=== PATIENT | female | born 1975 | race African-American/Black ===

== ENCOUNTER 2025-05-07 16:10 | Observation (INO) ==
--- NOTE | 2025-05-07 16:27 | EKG ---
Test Reason : chest pain Blood Pressure : */* mmHG Vent. Rate : 100 BPM Atrial Rate : 100 BPM P-R Int : 168 ms QRS Dur : 82 ms QT Int : 380 ms P-R-T Axes : 72 33 95 degrees QTc Int : 490 ms Normal sinus rhythm Nonspecific T wave abnormality Prolonged QT Abnormal ECG When compared with ECG of 04-MAY-2025 13:06, No significant change was found Confirmed by Colt Farrar MD ([id number]) on 05/08/2025 7:19:49 AM Referred By: Confirmed By: Colt Farrar MD
[2025-05-07 16:42] LABS: BASOPHILS # (AUTO) 0.1 X10^3/uL (0.0-0.1); BASOPHILS % (AUTO) 1.5 % (0.2-1.0); EOSINOPHILS # (AUTO) 0.1 x10^3/uL (0.0-0.2); EOSINOPHILS % (AUTO) 1.1 % (0.9-2.9); HEMATOCRIT 36.2 % (36.0-47.0); HEMOGLOBIN 12.1 g/dL (12.0-16.0); LYMPHOCYTES # (AUTO) 2.1 X10^3/uL (1.3-2.9); MEAN CORPUSCULAR HEMOGLOBIN 27.5 pg (27.0-34.0); MEAN CORPUSCULAR HGB CONC 33.4 g/dL (33.0-35.0); MEAN CORPUSCULAR VOLUME 82.3 fL (80.0-100.0); MEAN PLATELET VOLUME 8.7 fL (7.4-11.0); MONOCYTES # (AUTO) 0.7 x10^3/uL (0.3-0.8); MONOCYTES % (AUTO) 10.5 % (0.0-13.0); NEUTROPHILS # (AUTO) 3.4 x10^3/uL (2.2-4.8); NEUTROPHILS % (AUTO) 53.9 % (42.0-75.0); PLATELET COUNT 265 X10^3/uL (150.0-450.0); RED BLOOD COUNT 4.39 X10^6/uL (3.5-5.4); RED CELL DISTRIBUTION WIDTH 13.7 % (11.6-16.5); WHITE BLOOD COUNT 6.2 X10^3/uL (3.6-10.0)
[2025-05-07 16:45] LABS: INR 1.29 (0.8-1.3)
[2025-05-07 16:48] LABS: SERUM ACETONE NEGATIVE (NEGATIVE)
[2025-05-07 16:52] LABS: ALANINE AMINOTRANSFERASE 19 Units/L (12-78); ALBUMIN 3.6 g/dL (3.4-5.0); ALKALINE PHOSPHATASE 117 Units/L (46-116); ASPARTATE AMINO TRANSFERASE 30 Units/L (15-37); BLOOD UREA NITROGEN 29 mg/dL (7-18); CARBON DIOXIDE 24.5 mmol/L (21-32); CHLORIDE 93 mmol/L (98-107); COR NA(FOR HYPERGLY) 137 mmol/L (136-145); CREATINE KINASE 151 Units/L (26-192); GLUCOSE 434 mg/dL (65-99); POTASSIUM 4.2 mmol/L (3.5-5.1); SODIUM 129 mmol/L (136-145); TOTAL PROTEIN 8.5 g/dL (6.4-8.2); eGFR NON BLACK RACES 56 (>60)
[2025-05-07] MEDS: NS 1,000 ML IV 1,000 ML IV ONE (17:59)
[2025-05-07] MEDS ORDERED: OMNIPAQUE 350 mg/mL 100 mL BTL 100 ML ONE (18:07)
[2025-05-07] MEDS: NovoLIN R (or HumuLIN R) IV ONE (18:56)
--- NOTE | 2025-05-07 19:16 | CT ---
EXAMINATION: CTA, CHEST HISTORY: ELEVATED D-DIMER / CHEST PAIN / SOB ; . COMPARISON: None. TECHNIQUE: Routine axial imaging of the chest was performed. CT angiography of the pulmonary arteries was performed with maximum intensity projection images and volume rendered images on a workstation.. The above CT scan was done with automated exposure control and the mA and kV was adjusted to obtain quality im ages according to patient size. FINDINGS: Lungs: No acute infiltrates, suspicious pulmonary nodules, interstitial changes or ground-glass opacities. Atelectasis at the lung bases. Central Airways: No obstructing endobronchial lesions Pleura: No pleural effusion or pneumothorax Thoracic Aorta: Ectasia. Atherosclerotic calcification. No dissection. Main Pulmonary Trunk: Enlarged. This may represent pulmonary arterial hypertension. Pulmonary artery measures 3.[address] angiography evidence for acute pulmonary embolus. Evaluation limited by respiratory motion Lymph Nodes: No pathologic hilar, axillary or mediastinal adenopathy Heart/Pericardium: Cardiomegaly. No significant pericardial effusion. Coronary artery calcification Liver: No acute findings. GB/Biliary: Contracted gallbladder. Spleen: Normal size and density Pancreas: No acute findings as visualized. Adrenal Glands: No mass Kidneys no hydronephrosis. Abdominal Aorta: Tapers and enhances normally. Retroperitoneum: No pathologic lymphadenopathy Bowel/Peritoneal Cavity: No acute findings as visualized. Osseous Structures: Degenerative changes in the thoracolumbar spine. No acute findings. No suspicious bony lesions. Other: None IMPRESSION: No CT angiography evidence for acute pulmonary embolus or aortic dissection. Evaluation limited by respiratory motion. No acute findings. Enlarged pulmonary artery suggesting pulmonary arterial hypertension The above CT scan was done with automated exposure control and the mA and kV was adjusted to obtain quality images according to patient size THIS IS AN ELECTRONICALLY VERIFIED FINAL REPORT 05/07/2025 7:12 PM - Electronically signed by Al Cohn MD
--- NOTE | 2025-05-07 20:04 | DR.CP ---
HPI Time Seen Time Seen by Provider: 05/07/25 17:23 PCP Primary Care Physician: Dr. Quinones HPI Comment HPI Comment: Patient states that while she was at [facility] she started having chest pain. She has had increased blood sugars. Patient was recently seen in the ER for hyperglycemia. Patient was supposed to follow-up with PCP on Thursday but was unable to get in and is scheduled for Thursday. Patient's sugar was elevated but states better than before she was seen on . She denies any fevers. She does admit to some dyspnea on exertion. Complaint Chief Complaint:: Patient c/o of chest pain that started today at [facility] and increased blood sugars. Self Treatment fo Chief Complaint: Lantus 30units at 6am COVID-19 Coronavirus risk:travel/contact w/high risk person: No Has patient experienced Coronavirus symptoms: No Source History Provided: Patient Mode of Arrival Mode of Arrival: Ambulatory Timing Onset of Chief Complaint: 05/07/25 Location Chest Pain Radiation Location: None Associated Signs and Symptoms Associated Signs and Symptoms: None PMH PMH Past Medical History: Yes Past Medical History: Anemia, Diabetes, Dyslipidemia and Hypertension Past Surgical History: Yes Surgical History: , Hysterectomy and Other Family History History of Family Medical Conditions: Yes Family Medical History: Diabetes Mellitus, [place] and Hypertension Social History Do you use any recreational Drugs:: No Travel Risk Coronavirus risk:travel/contact w/high risk person: No Has patient experienced Coronavirus symptoms: No Infectious screening In the last 2 months have you had wt loss of >10#?: NO Have you had fever, night sweats or hemotysis?: No Have you traveled outside the country in the last 6 months?: No Isolation: Standard ROS Review of Systems Constitutional: No Symptoms Reported Eyes: No Symptoms Reported ENTM: No Symptoms Reported Respiratoy: No Symptoms Reported Cardiovascular: Chest Pain Gastrointestinal/Abdominal: No Symptoms Reported Genitourinary: No Symptoms Reported Neurological: No Symptoms Reported Musculoskeletal: No Symptoms Reported Integumentary: No Symptoms Reported Hematologic/Lymphatic: No Symptoms Reported Endocrine: No Symptoms Reported and See HPI Psychiatric: No Symptoms Reported All Other Systems: Reviewed and Negative PE Vitals Vitals: Vital Signs Temperature 98.3 F Pulse Rate 92 Pulse Rate 95 Pulse Rate 93 Pulse Rate 96 Pulse Rate 99 Pulse Rate 97 Pulse Rate 96 Pulse Rate 97 Pulse Rate 98 Pulse Rate 97 Pulse Rate 99 Pulse Rate 100 Respiratory Rate 25 Respiratory Rate 23 Respiratory Rate 23 Respiratory Rate 15 Blood Pressure 147/104 Blood Pressure 144/74 Blood Pressure 136/77 Blood Pressure 136/77 Blood Pressure 139/60 Blood Pressure 136/61 Blood Pressure 135/57 Blood Pressure 134/61 O2 Sat by Pulse Oximetry 100 O2 Sat by Pulse Oximetry 98 O2 Sat by Pulse Oximetry 100 O2 Sat by Pulse Oximetry 99 O2 Sat by Pulse Oximetry 100 O2 Sat by Pulse Oximetry 100 O2 Sat by Pulse Oximetry 99 O2 Sat by Pulse Oximetry 99 O2 Sat by Pulse Oximetry 100 O2 Sat by Pulse Oximetry 100 O2 Sat by Pulse Oximetry 100 O2 Sat by Pulse Oximetry 99 General Limitations: No Limitations General Appearance: Alert and In No Apparent Distress Head Head Exam: Normal Inspection Eyes Eye exam: Normal Appearance ENT ENT Exam: Normal Exam Chest Chest Inspection: negative Normal Inspection Respiratory Respiratory Exam: Normal Lung Sounds Bilat Cardiovascular Cardiovascular Exam: Regular Rate and Normal Rhythm Pulse: Normal Edema: Normal Abdominal Exam Abdominal Exam: Normal Inspection, Normal Bowel Sounds and Soft Extremities Extremities Exam: Normal Inspection Back Back Exam: Normal Inspection Neurologic Neurological Exam: Alert and Oriented X3 Psychiatric Psychiatric Exam: Normal Affect and Normal Mood Skin Skin Exam: Warm, Dry, Intact and Normal Color COURSE Treatment Treatment: Patient's glucose improved through the stay. Continues to have some chest pain. Discussed results of workup. Patient is agreeable to admission for chest pain rule out and to regulate her glucose. Consultation Called: 20:02 Consultation Comments: Discussed case with Dr. Heck and she is agreeable to admission. [facility]OR Labs Reviewed Laboratory Results Reviewed?: Yes 05/07/25 16:18 05/07/25 16:18 Laboratory: WBC 6.2 X10^3/uL (3.6-10.0) 05/07/25 16:18 RBC 4.39 X10^6/uL (3.5-5.4) 05/07/25 16:18 Hgb 12.1 g/dL (12.0-16.0) 05/07/25 16:18 Hct 36.2 % (36.0-47.0) 05/07/25 16:18 MCV 82.3 fL (80.0-100.0) 05/07/25 16:18 MCH 27.5 pg (27.0-34.0) 05/07/25 16:18 MCHC 33.4 g/dL (33.0-35.0) 05/07/25 16:18 RDW 13.7 % (11.6-16.5) 05/07/25 16:18 Plt Count 265 X10^3/uL (150.0-450.0) 05/07/25 16:18 MPV 8.7 fL (7.4-11.0) 05/07/25 16:18 Neut % (Auto) 53.9 % (42.0-75.0) 05/07/25 16:18 Lymph % (Auto) 33.0 % (21.0-51.0) 05/07/25 16:18 [place] % (Auto) 10.5 % (0.0-13.0) 05/07/25 16:18 Eos % (Auto) 1.1 % (0.9-2.9) 05/07/25 16:18 Baso % (Auto) 1.5 % (0.2-1.0) H 05/07/25 16:18 Neut # (Auto) 3.4 x10^3/uL (2.2-4.8) 05/07/25 16:18 Lymph # (Auto) 2.1 X10^3/uL (1.3-2.9) 05/07/25 16:18 [place] # (Auto) 0.7 x10^3/uL (0.3-0.8) 05/07/25 16:18 Eos # (Auto) 0.1 x10^3/uL (0.0-0.2) 05/07/25 16:18 Baso # (Auto) 0.1 X10^3/uL (0.0-0.1) 05/07/25 16:18 Absolute Nucleated RBC 0.1 /100WBC 05/07/25 16:18 PT 16.2 SECONDS (11.8-14.3) 05/07/25 16:18 INR Target Range - 05/07/25 16:18 INR 1.29 (0.8-1.3) 05/07/25 16:18 APTT 30.0 SECONDS (22.9-36.5) 05/07/25 16:18 PTT Comment - 05/07/25 16:18 D-Dimer 0.75 ug/ml (0.0-0.57) H 05/07/25 16:18 D-Dimer Cancelled 05/07/25 16:18 Sodium 129 mmol/L (136-145) L 05/07/25 16:18 Corrected Sodium 137 mmol/L (136-145) 05/07/25 16:18 Potassium 4.2 mmol/L (3.5-5.1) 05/07/25 16:18 Chloride 93 mmol/L (98-107) L 05/07/25 16:18 Carbon Dioxide 24.5 mmol/L (21-32) 05/07/25 16:18 BUN 29 mg/dL (7-18) H 05/07/25 16:18 Creatinine 1.10 mg/dL (0.55-1.02) H 05/07/25 16:18 Est GFR (MDRD) Af Amer > 60 (>60) 05/07/25 16:18 Est GFR (MDRD) Non-Af 56 (>60) L 05/07/25 16:18 Glucose 434 mg/dL (65-99) H 05/07/25 16:18 POC Glucose (mg/dL) 195 mg/dL (65-99) H 05/07/25 19:48 Calcium 9.0 mg/dL (8.5-10.1) 05/07/25 16:18 Corrected Calcium TNP 05/07/25 16:18 Total Bilirubin 0.60 mg/dL (0.2-1.0) 05/07/25 16:18 AST 30 Units/L (15-37) 05/07/25 16:18 ALT 19 Units/L (12-78) 05/07/25 16:18 Alkaline Phosphatase 117 Units/L (46-116) H 05/07/25 16:18 Creatine Kinase 151 Units/L (26-192) 05/07/25 16:18 Troponin I High Sens 7.7 ng/L (4.0-60.0) 05/07/25 19:24 B-Natriuretic Peptide < 5.0 pg/mL (0-79) 05/07/25 16:18 Total Protein 8.5 g/dL (6.4-8.2) H 05/07/25 16:18 Albumin 3.6 g/dL (3.4-5.0) 05/07/25 16:18 Globulin 4.9 g/dL (2.5-4.5) H 05/07/25 16:18 Albumin/Globulin Ratio 0.7 Ratio (1.1-2.1) L 05/07/25 16:18 Acetone, Semi-Quant Negative (NEGATIVE) 05/07/25 16:18 Other Results Comments: CTA chest interpreted by radiologist: IMPRESSION: No CT angiography evidence for acute pulmonary embolus or aortic dissection. Evaluation limited by respiratory motion. No acute findings. Enlarged pulmonary artery suggesting pulmonary arterial hypertension The above CT scan was done with automated exposure control and the mA and kV was adjusted to obtain quality images according to patient size THIS IS AN ELECTRONICALLY VERIFIED FINAL REPORT 05/07/2025 7:12 PM - Electronically signed by Al Cohn MD XRAY XRAY Interpreted by: Self (Chest x-ray interpreted by myself. No acute cardiopulmonary findings. Mild cardiomegaly with pulmonary markings reflecting possible pulmonary hypertension.) Opioid Opioid Risk Tool Age (Zechariah box if 16-45): No History of Preadolescent Sexual Abuse: No Total: 0 Total Score Risk Category: Low Risk Copyright: Marcial MENDOZA predicting aberrant behaviors Discharge Plan Diagnosis Discharge Problem: Chest pain Type 2 diabetes mellitus with hyperglycemia Qualifiers: Diabetes mellitus termite technician insulin use: with [facility] use Qualified Code(s): E11.65 - Type 2 diabetes mellitus with hyperglycemia Discharge Plan Patient Disposition: ADMITTED INPATIENT Condition: Stable Prescriptions: No Action carvedilol 6.25 mg tablet 6.25 mg PO BID atorvastatin 20 mg tablet 20 mg PO QPM ibuprofen 800 mg tablet 800 mg PO Q8H PRN oxycodone 15 mg tablet 15 mg PO QID PRN (Reason: chronic pain) pantoprazole 40 mg tablet,delayed release (DR/EC) 40 mg PO QAM olmesartan 20 mg tablet 20 mg PO QDAY levocetirizine 5 mg tablet 5 mg PO QPM insulin glargine [Lantus U-100 Insulin] 100 unit/mL solution 30 unit SUBCUT HS Patient Comments: [NO ORIGINAL SIG] buspirone 15 mg tablet 15 mg PO BID Eliquis 5 mg tablet 5 mg PO BID Health Concerns: Post Hospitalization: new medications and changes needed to prevent readmission or further decline. Pt educated and given instructions on all concerns. Plan of Treatment: Continue with present treatment and follow up plan. Pt is to keep follow up appointment as instructed and take medications as ordered. Orders to Discharge Patient Discharge Orders: Transfer (Routine); Ordered 05/07/25 Ordered By: Cal Coe Follow ups/Referrals Follow ups/Referrals: NFD,None [Primary Care Provider] - 3 days Instructions Stand Alone Forms: Find Help Web Site, Post Hospital Follow Up Care Print Language: SERBIAN
[2025-05-07] MEDS: NS 1,000 ML IV 1,000 ML IV SCH (21:11)
[2025-05-07] MEDS ORDERED: ROXICODONE TAB 15 MG PO PRN (21:12)
--- NOTE | 2025-05-07 21:25 | EKG ---
Test Reason : chest pain Blood Pressure : */* mmHG Vent. Rate : 92 BPM Atrial Rate : 92 BPM P-R Int : 172 ms QRS Dur : 76 ms QT Int : 406 ms P-R-T Axes : 72 10 128 degrees QTc Int : 502 ms Normal sinus rhythm Nonspecific T wave abnormality Abnormal ECG When compared with ECG of 07-MAY-2025 16:23, (Unconfirmed) No significant change was found Confirmed by Colt Farrar MD ([id number]) on 05/08/2025 7:18:59 AM Referred By: Confirmed By: Colt Farrar MD
[2025-05-07] MEDS: COREG TAB 6.25 MG PO SCH (21:30)
[2025-05-07] MEDS: LIPITOR TAB 20 MG PO SCH (21:30)
[2025-05-07] MEDS: BUSPAR PO SCH (21:30)
[2025-05-07] MEDS: SNACK - Diabetic Appropriate PO SCH (21:30)
[2025-05-07] MEDS: ELIQUIS PO SCH (21:30)
[2025-05-07] MEDS: NovoLIN R (or HumuLIN R) SUBCUT PRN (21:36)
[2025-05-07 22:34] VITALS: BMI 43.4
--- NOTE | 2025-05-08 00:31 | RAD ---
EXAM: FRONTAL VIEW CHEST X-RAY HISTORY: Chest pain COMPARISON: None. FINDINGS: No focal consolidation is seen. The heart size is within normal limits. The mediastinum is unremarkable. There is no evidence of pleural effusion or gross pneumothorax. The trachea is midline. IMPRESSION: No focal consolidation is seen. The heart size is normal. THIS IS AN ELECTRONICALLY VERIFIED FINAL REPORT 05/08/2025 12:28 AM - Electronically signed by Peter Schumacher MD
--- NOTE | 2025-05-08 02:47 | EKG ---
Test Reason : chest pain Blood Pressure : */* mmHG Vent. Rate : 89 BPM Atrial Rate : 89 BPM P-R Int : 174 ms QRS Dur : 78 ms QT Int : 406 ms P-R-T Axes : 81 24 60 degrees QTc Int : 493 ms Normal sinus rhythm Nonspecific T wave abnormality Abnormal ECG When compared with ECG of 07-MAY-2025 21:02, (Unconfirmed) No significant change was found Confirmed by Colt Farrar MD ([id number]) on 05/08/2025 7:18:50 AM Referred By: Confirmed By: Colt Farrar MD
[2025-05-08 06:00] LABS: BASOPHILS % (AUTO) 0.5 % (0.2-1.0); EOSINOPHILS # (AUTO) 0.1 x10^3/uL (0.0-0.2); EOSINOPHILS % (AUTO) 1.6 % (0.9-2.9); HEMATOCRIT 32.6 % (36.0-47.0); LYMPHOCYTES # (AUTO) 1.8 X10^3/uL (1.3-2.9); LYMPHOCYTES % (AUTO) 33.5 % (21.0-51.0); MEAN CORPUSCULAR HGB CONC 33.8 g/dL (33.0-35.0); MEAN CORPUSCULAR VOLUME 82.8 fL (80.0-100.0); MEAN PLATELET VOLUME 8.7 fL (7.4-11.0); MONOCYTES # (AUTO) 0.8 x10^3/uL (0.3-0.8); MONOCYTES % (AUTO) 15.1 % (0.0-13.0); NEUTROPHILS # (AUTO) 2.6 x10^3/uL (2.2-4.8); NEUTROPHILS % (AUTO) 49.3 % (42.0-75.0); PLATELET COUNT 221 X10^3/uL (150.0-450.0); RED BLOOD COUNT 3.94 X10^6/uL (3.5-5.4); RED CELL DISTRIBUTION WIDTH 13.9 % (11.6-16.5); WHITE BLOOD COUNT 5.2 X10^3/uL (3.6-10.0)
[2025-05-08 06:11] LABS: ALANINE AMINOTRANSFERASE 16 Units/L (12-78); ALBUMIN 2.9 g/dL (3.4-5.0); ALKALINE PHOSPHATASE 97 Units/L (46-116); ASPARTATE AMINO TRANSFERASE 24 Units/L (15-37); BLOOD UREA NITROGEN 19 mg/dL (7-18); CALCIUM 8.4 mg/dL (8.5-10.1); CARBON DIOXIDE 25.5 mmol/L (21-32); CHLORIDE 100 mmol/L (98-107); CHOL/HDL RATIO 4.8 (0.0-5.0); CHOLESTEROL 140 mg/dL (0-200); COR CA(FOR HYPOALB) 9.3 mg/dL (8.5-10.1); COR NA(FOR HYPERGLY) 138 mmol/L (136-145); GLUCOSE 283 mg/dL (65-99); HDL CHOLESTEROL 29 mg/dL (40-60); MAGNESIUM 1.7 mg/dL (2.0-2.9); POTASSIUM 3.5 mmol/L (3.5-5.1); SODIUM 134 mmol/L (136-145); TOTAL PROTEIN 7.2 g/dL (6.4-8.2); TRIGLYCERIDES 134 mg/dL (0-150); eGFR NON BLACK RACES > 60 (>60)
--- NOTE | 2025-05-08 06:51 | RAD ---
EXAMINATION: CHEST, 1 VIEW HISTORY: CHEST PAIN, DMII; . COMPARISON STUDY: Chest x-ray 05/07/2025 TECHNIQUE: Single frontal view of the chest FINDINGS: The film was obtained in the apical lordotic projection distorting the appearance of the anatomy. Mild cardiac silhouette enlargement. Lungs are clear. Normal pulmonary vascular pattern. Bones are intact. IMPRESSION: Mild cardiac silhouette enlargement. Recommend follow-up PA and lateral view of the chest with full inspiratory effort. THIS IS AN ELECTRONICALLY VERIFIED FINAL REPORT 05/08/2025 6:48 AM - Electronically signed by Angie Freire MD
[2025-05-08] MEDS ORDERED: CONSULT PHARMACY - POTASSIUM & MAGNESIUM XX SCH ×2 (07:00→08:00)
[2025-05-08] MEDS: BENICAR PO SCH (08:30)
[2025-05-08] MEDS: PROTONIX TAB 40 MG PO SCH (08:32)
[2025-05-08] MEDS: MAG-OX TAB PO SCH (08:32)
[2025-05-08] MEDS: K-DUR TAB 20 MEQ PO SCH (08:32)
--- NOTE | 2025-05-08 09:45 | EKG ---
Test Reason : chest pain Blood Pressure : */* mmHG Vent. Rate : 83 BPM Atrial Rate : 83 BPM P-R Int : 174 ms QRS Dur : 76 ms QT Int : 424 ms P-R-T Axes : 78 21 57 degrees QTc Int : 498 ms Normal sinus rhythm Prolonged QT Abnormal ECG When compared with ECG of 08-MAY-2025 02:23, Nonspecific T wave abnormality no longer evident in Inferior leads Nonspecific T wave abnormality, improved in Lateral leads Confirmed by Colt Farrar MD ([id number]) on 05/08/2025 12:34:26 PM Referred By: Confirmed By: Colt Farrar MD
--- NOTE | 2025-05-08 09:54 | DR.H&P ---
H&P History & Physical for Day of: H&P Date: 05/08/25 Chief Complaint Chief Complaint: Chest pain, hyperglycemia History of Present Illness History of Present Illness: Ms. Huber is a 50-year-old female with a past medical history of type 2 diabetes, hypertension, hyperlipidemia, history of DVT/PE and anemia presented with chest tightness and hyperglycemia. She was seen in the ER on 05/04/2025 for hyperglycemia and treated with insulin. She states her blood sugars have been elevated since she started taking Lantus using a vial rather than a pen. Her last A1C was 9%. She has a follow-up with her PCP on Thursday. ER workup showed troponin negative, slight elevation of D-dimer. CT chest did not show PE. Her glucose was 434 and she was treated with insulin. She was started on sliding scale and admitted for further management. She is feeling slightly better now. Denies chest pain. Glucose is 280. Labs/imaging reviewed: -WBC 5.2 Hgb 11 Plt 221 K 3.5 Cr 0.80 Mag 1.7 Trop x 4 (-) -CT chest: pulmonary HTN, no PE Plan: admit to med surg on telemetry. Start Lantus 20 units BID. Continue SSI. Monitor glucose levels. Diabetic diet. Resume home medications. Replace electrolytes as per protocol. Monitor AM labs/imaging. Past Medical History Past Medical History: Anemia, Diabetes, Dyslipidemia and Hypertension Past Surgical History Surgical History: Hysterectomy and Other Family History Family Medical History: Diabetes Mellitus, Cancer and Hypertension Social History Does patient currently use any type of tobacco product: No Type of Tobacco Use: None Does any household member use tobacco: No Alcohol Use: None Drug Use: None Medications Home Medications: Home Medications Medication Instructions Recorded Confirmed Type apixaban 5 mg tablet (Eliquis) 5 mg PO BID 05/04/25 History atorvastatin 20 mg tablet 20 mg PO QPM cholesterol 04/2305/07/25 History buspirone 15 mg tablet 15 mg PO BID 05/04/25 History carvedilol 6.25 mg tablet 6.25 mg PO BID 05/04/2507/24 History ibuprofen 800 mg tablet 800 mg PO Q8H PRN 05/04/25 0 05/07/25 History insulin glargine 100 unit/mL 30 unit subcut HS 5 05/07/25 History subcutaneous solution (Lantus U-100 Insulin) levocetirizine 5 mg tablet 5 mg PO QPM 05/04/25 History olmesartan 20 mg tablet 20 mg PO QDAY blood pressure 05/04/25 05/07/25 History oxycodone 15 mg tablet 15 mg PO QID PRN chronic caterina n 05/04/25 05/07/25 History pantoprazole 40 mg tablet,delayed 40 mg PO QAM 5 05/07/25 History release Allergies Allergies Allergy/AdvReac Type Severity Reaction Status Date / Time No Known Drug Allergies Allergy Verified 05/04/25 13:05 Labs 05/08/25 05:03 05/08/25 05:03 Labs: Laboratory WBC 5.2 X10^3/uL (3.6-10.0) 05/08/25 05:03 RBC 3.94 X10^6/uL (3.5-5.4) 05/08/25 05:03 Hgb 11.0 g/dL (12.0-16.0) L 05/08/25 05:03 Hct 32.6 % (36.0-47.0) L 05/08/25 05:03 MCV 82.8 fL (80.0-100.0) 05/08/25 05:03 MCH 28.0 pg (27.0-34.0) 05/08/25 05:03 MCHC 33.8 g/dL (33.0-35.0) 05/08/25 05:03 RDW 13.9 % (11.6-16.5) 05/08/25 05:03 Plt Count 221 X10^3/uL (150.0-450.0) 05/08/25 05:03 MPV 8.7 fL (7.4-11.0) 05/08/25 05:03 Neut % (Auto) 49.3 % (42.0-75.0) 05/08/25 05:03 Lymph % (Auto) 33.5 % (21.0-51.0) 05/08/25 05:03 [place] % (Auto) 15.1 % (0.0-13.0) H 05/08/25 05:03 Eos % (Auto) 1.6 % (0.9-2.9) 05/08/25 05:03 Baso % (Auto) 0.5 % (0.2-1.0) 05/08/25 05:03 Neut # (Auto) 2.6 x10^3/uL (2.2-4.8) 05/08/25 05:03 Lymph # (Auto) 1.8 X10^3/uL (1.3-2.9) 05/08/25 05:03 [place] # (Auto) 0.8 x10^3/uL (0.3-0.8) 05/08/25 05:03 Eos # (Auto) 0.1 x10^3/uL (0.0-0.2) 05/08/25 05:03 Baso # (Auto) 0.0 X10^3/uL (0.0-0.1) 05/08/25 05:03 Absolute Nucleated RBC 0.1 /100WBC 05/08/25 05:03 PT 16.2 SECONDS (11.8-14.3) 05/07/25 16:18 INR Target Range - 05/07/25 16:18 INR 1.29 (0.8-1.3) 05/07/25 16:18 APTT 30.0 SECONDS (22.9-36.5) 05/07/25 16:18 PTT Comment - 05/07/25 16:18 D-Dimer 0.75 ug/ml (0.0-0.57) H 05/07/25 16:18 D-Dimer Cancelled 05/07/25 16:18 Sodium 134 mmol/L (136-145) L 05/08/25 05:03 Corrected Sodium 138 mmol/L (136-145) 05/08/25 05:03 Potassium 3.5 mmol/L (3.5-5.1) 05/08/25 05:03 Chloride 100 mmol/L (98-107) 05/08/25 05:03 Carbon Dioxide 25.5 mmol/L (21-32) 05/08/25 05:03 BUN 19 mg/dL (7-18) H 05/08/25 05:03 Creatinine 0.80 mg/dL (0.55-1.02) 05/08/25 05:03 Est GFR (MDRD) Af Amer > 60 (>60) 05/08/25 05:03 Est GFR (MDRD) Non-Af > 60 (>60) 05/08/25 05:03 Glucose 283 mg/dL (65-99) H 05/08/25 05:03 POC Glucose (mg/dL) 280 mg/dL (65-99) H 05/08/25 05:43 Calcium 8.4 mg/dL (8.5-10.1) L 05/08/25 05:03 Corrected Calcium 9.3 mg/dL (8.5-10.1) 05/08/25 05:03 Magnesium 1.7 mg/dL (2.0-2.9) L 05/08/25 05:03 Total Bilirubin 0.30 mg/dL (0.2-1.0) 05/08/25 05:03 AST 24 Units/L (15-37) 05/08/25 05:03 ALT 16 Units/L (12-78) 05/08/25 05:03 Alkaline Phosphatase 97 Units/L (46-116) 05/08/25 05:03 Creatine Kinase 99 Units/L (26-192) 05/08/25 07:37 Troponin I High Sens 8.1 ng/L (4.0-60.0) 05/08/25 07:37 B-Natriuretic Peptide < 5.0 pg/mL (0-79) 05/07/25 16:18 Total Protein 7.2 g/dL (6.4-8.2) 05/08/25 05:03 Albumin 2.9 g/dL (3.4-5.0) L 05/08/25 05:03 Globulin 4.3 g/dL (2.5-4.5) 05/08/25 05:03 Albumin/Globulin Ratio 0.7 Ratio (1.1-2.1) L 05/08/25 05:03 Triglycerides 134 mg/dL (0-150) 05/08/25 05:03 Cholesterol 140 mg/dL (0-200) 05/08/25 05:03 LDL Cholesterol, Calc 84 mg/dL (0-100) 05/08/25 05:03 HDL Cholesterol 29 mg/dL (40-60) L 05/08/25 05:03 Cholesterol/HDL Ratio 4.8 (0.0-5.0) 05/08/25 05:03 Acetone, Semi-Quant Negative (NEGATIVE) 05/07/25 16:18 Review of Systems Constitutional: No Symptoms Reported Eyes: No Symptoms Reported ENT: No Symptoms Reported Respiratory: No Symptoms Reported Cardiovascular: Chest Pain Gastrointestinal: No Symptoms Reported Genitourinary: No Symptoms Reported Musculoskeletal: No Symptoms Reported Skin: No Symptoms Reported Neurological: No Symptoms Reported Physical Exam Vital Signs: Vital Signs Temperature 98.9 F Temperature 97.5 F Pulse Rate [Left Brachial] 85 Pulse Rate [Left Brachial] 87 Respiratory Rate 19 Respiratory Rate 19 Blood Pressure [Left Arm] 130/67 Blood Pressure [Left Arm] 130/78 O2 Sat by Pulse Oximetry 100 O2 Sat by Pulse Oximetry 100 Oriented: Normal Throat: Normal Respiratory: Clear Throughout Cardiovascular: Normal Auscultation: Bowel Sounds: Normal Palpation: Normal Tenderness: Normal Skin: Normal Musculoskeletal: Normal Psychiatric: Normal Mood Description: Calm Affect: Normal Speech Pattern: Clear and Appropriate Assessment/Plan (1) Hyperglycemia: Status: Acute (2) Type 2 diabetes mellitus with hyperglycemia: Qualifiers: Diabetes mellitus exterminator helper termite insulin use: with usp use Qualified Code(s): E11.65 - Type 2 diabetes mellitus with hyperglycemia; Z79.4 - long term acute care registered nurse (current) use of insulin Status: Chronic (3) Chest pain: Qualifiers: Chest pain type: unspecified Qualified Code(s): R07.9 - Chest pain, unspecified Status: Acute (4) HTN (hypertension): Qualifiers: Hypertension type: primary hypertension Qualified Code(s): I10 - Essential (primary) hypertension Status: Chronic (5) History of pulmonary embolism: Status: Chronic (6) Hypomagnesemia: Status: Acute Review H&P Reviewed: Yes Patient was examined?: Yes
[2025-05-08] MEDS: LANTUS SC SCH (10:43)
[2025-05-08] MEDS ORDERED: SNACK - Diabetic Appropriate PO SCH (20:00)
[2025-05-08] MEDS: SNACK - Diabetic Appropriate PO SCH (20:09)
[2025-05-09 00:10] VITALS: TEMP 98.1
[2025-05-09 04:11] VITALS: RESP 19; O2SAT 100
[2025-05-09 05:01] LABS: BASOPHILS % (AUTO) 0.6 % (0.2-1.0); EOSINOPHILS # (AUTO) 0.1 x10^3/uL (0.0-0.2); EOSINOPHILS % (AUTO) 1.7 % (0.9-2.9); HEMATOCRIT 32.5 % (36.0-47.0); HEMOGLOBIN 10.9 g/dL (12.0-16.0); LYMPHOCYTES # (AUTO) 1.7 X10^3/uL (1.3-2.9); LYMPHOCYTES % (AUTO) 31.6 % (21.0-51.0); MEAN CORPUSCULAR HEMOGLOBIN 27.7 pg (27.0-34.0); MEAN CORPUSCULAR HGB CONC 33.7 g/dL (33.0-35.0); MEAN CORPUSCULAR VOLUME 82.4 fL (80.0-100.0); MEAN PLATELET VOLUME 8.4 fL (7.4-11.0); MONOCYTES # (AUTO) 0.7 x10^3/uL (0.3-0.8); MONOCYTES % (AUTO) 12.5 % (0.0-13.0); NEUTROPHILS # (AUTO) 2.9 x10^3/uL (2.2-4.8); NEUTROPHILS % (AUTO) 53.6 % (42.0-75.0); PLATELET COUNT 230 X10^3/uL (150.0-450.0); RED BLOOD COUNT 3.95 X10^6/uL (3.5-5.4); RED CELL DISTRIBUTION WIDTH 13.8 % (11.6-16.5); WHITE BLOOD COUNT 5.3 X10^3/uL (3.6-10.0)
[2025-05-09 05:10] LABS: ALANINE AMINOTRANSFERASE 18 Units/L (12-78); ALKALINE PHOSPHATASE 97 Units/L (46-116); ASPARTATE AMINO TRANSFERASE 26 Units/L (15-37); BLOOD UREA NITROGEN 11 mg/dL (7-18); CALCIUM 8.9 mg/dL (8.5-10.1); CARBON DIOXIDE 26.1 mmol/L (21-32); CHLORIDE 103 mmol/L (98-107); COR CA(FOR HYPOALB) 9.7 mg/dL (8.5-10.1); COR NA(FOR HYPERGLY) 138 mmol/L (136-145); CREATININE 0.73 mg/dL (0.55-1.02); GLUCOSE 149 mg/dL (65-99); MAGNESIUM 1.6 mg/dL (2.0-2.9); POTASSIUM 3.5 mmol/L (3.5-5.1); SODIUM 137 mmol/L (136-145); TOTAL PROTEIN 7.3 g/dL (6.4-8.2); eGFR NON BLACK RACES > 60 (>60)
[2025-05-09] MEDS ORDERED: CONSULT PHARMACY - POTASSIUM & MAGNESIUM XX SCH (06:00)
[2025-05-09 08:02] VITALS: BP 121/70; PULSE 95
[2025-05-09] MEDS: MAG-OX TAB PO SCH (08:41)
[2025-05-09] MEDS: LANTUS SC SCH (08:54)
[2025-05-09] MEDS ORDERED: K-DUR TAB 20 MEQ PO SCH (09:00)
--- NOTE | 2025-05-11 13:07 | W.DIS.FURT ---
Summary of Discharge Discharge Summary of Date Date of Exam: 05/09/25 Admission Date Date of Admission: 05/07/25 Admission Diagnosis Patient Problems (Updated 05/08/25 @ 09:53 by Marleni Heck MD) Chest pain (Acute) R07.9 Type 2 diabetes mellitus with hyperglycemia (Chronic) E11.65 Hospital Course: Ms. Huber is a 50-year-old female with a past medical history of type 2 diabetes, hypertension, hyperlipidemia, history of DVT/PE and anemia presented with chest tightness and hyperglycemia. She was seen in the ER on 05/04/2025 for hyperglycemia and treated with insulin. She states her blood sugars have been elevated since she started taking Lantus using a vial rather than a pen. Her last A1C was 9%. She has a follow-up with her PCP on Thursday. ER workup showed troponin negative, slight elevation of D-dimer. CT chest did not show PE. Her glucose was 434 and she was treated with insulin. She was started on sliding scale and admitted for further management. Labs were monitored daily and electrolytes replaced as needed. She was started on Lantus 20 units twice daily along with sliding scale short acting insulin. Her glucose levels did not improve the next day. She was told to take Lantus 22 units twice a day along with sliding scale. She does have a follow-up with PCP coming up. She was feeling better and stable for discharge. Vital Signs: Vital Signs (72 hours) 05/07/25 16:21 05/07/25 16:22 05/07/25 16:30 Temperature 98.3 F Pulse Rate 100 H 99 H Pulse Rate [Left Brachial] Respiratory Rate 15 23 Blood Pressure 134/61 135/57 Blood Pressure [Left Arm] Blood Pressure [Right Arm] O2 Sat by Pulse Oximetry 99 100 Oxygen Delivery Method Room Air Oxygen Flow Rate FIO2% 05/07/25 16:30 05/07/25 16:45 05/07/25 17:00 Temperature Pulse Rate 97 H 98 H Pulse Rate [Left Brachial] Respiratory Rate 23 25 H Blood Pressure 136/61 Blood Pressure [Left Arm] Blood Pressure [Right Arm] O2 Sat by Pulse Oximetry 100 100 Oxygen Delivery Method Oxygen Flow Rate FIO2% 05/07/25 17:00 05/07/25 17:15 05/07/25 17:30 Temperature Pulse Rate 97 H 96 H Pulse Rate [Left Brachial] Respiratory Rate Blood Pressure 139/60 Blood Pressure [Left Arm] Blood Pressure [Right Arm] O2 Sat by Pulse Oximetry 99 99 Oxygen Delivery Method Oxygen Flow Rate FIO2% 05/07/25 17:30 05/07/25 17:45 05/07/25 17:55 Temperature Pulse Rate 97 H 99 H Pulse Rate [Left Brachial] Respiratory Rate Blood Pressure 136/77 Blood Pressure [Left Arm] Blood Pressure [Right Arm] O2 Sat by Pulse Oximetry 100 100 Oxygen Delivery Method Oxygen Flow Rate FIO2% 05/07/25 17:55 05/07/25 17:55 05/07/25 18:00 Temperature Pulse Rate 96 H 93 H Pulse Rate [Left Brachial] Respiratory Rate Blood Pressure 136/77 Blood Pressure [Left Arm] Blood Pressure [Right Arm] O2 Sat by Pulse Oximetry 99 100 Oxygen Delivery Method Oxygen Flow Rate FIO2% 05/07/25 18:00 05/07/25 18:15 05/07/25 18:30 Temperature Pulse Rate 95 H 92 H Pulse Rate [Left Brachial] Respiratory Rate Blood Pressure 144/74 Blood Pressure [Left Arm] Blood Pressure [Right Arm] O2 Sat by Pulse Oximetry 98 100 Oxygen Delivery Method Oxygen Flow Rate FIO2% 05/07/25 18:30 05/07/25 18:30 05/07/25 18:30 Temperature Pulse Rate 92 H Pulse Rate [Left Brachial] Respiratory Rate Blood Pressure 147/104 147/104 Blood Pressure [Left Arm] Blood Pressure [Right Arm] O2 Sat by Pulse Oximetry 100 Oxygen Delivery Method Oxygen Flow Rate FIO2% 05/07/25 18:52 05/07/25 19:00 05/07/25 19:00 Temperature Pulse Rate 95 H 97 H Pulse Rate [Left Brachial] Respiratory Rate Blood Pressure 158/78 Blood Pressure [Left Arm] Blood Pressure [Right Arm] O2 Sat by Pulse Oximetry 100 100 Oxygen Delivery Method Oxygen Flow Rate FIO2% 05/07/25 19:15 05/07/25 19:30 05/07/25 19:30 Temperature Pulse Rate 101 H 99 H Pulse Rate [Left Brachial] Respiratory Rate Blood Pressure 130/74 Blood Pressure [Left Arm] Blood Pressure [Right Arm] O2 Sat by Pulse Oximetry 99 100 Oxygen Delivery Method Oxygen Flow Rate FIO2% 05/07/25 19:45 05/07/25 20:00 05/07/25 20:00 Temperature Pulse Rate 96 H 96 H Pulse Rate [Left Brachial] Respiratory Rate 10 L Blood Pressure 147/75 Blood Pressure [Left Arm] Blood Pressure [Right Arm] O2 Sat by Pulse Oximetry 100 99 Oxygen Delivery Method Oxygen Flow Rate FIO2% 05/07/25 20:14 05/07/25 20:15 05/07/25 20:30 Temperature Pulse Rate 99 H 98 H Pulse Rate [Left Brachial] Respiratory Rate 23 20 Blood Pressure Blood Pressure [Left Arm] Blood Pressure [Right Arm] O2 Sat by Pulse Oximetry 99 100 Oxygen Delivery Method Room Air Oxygen Flow Rate FIO2% 05/07/25 20:31 05/07/25 20:31 05/07/25 21:30 Temperature Pulse Rate 97 H Pulse Rate [Left Brachial] Respiratory Rate 24 Blood Pressure 165/81 Blood Pressure [Left Arm] Blood Pressure [Right Arm] O2 Sat by Pulse Oximetry 99 Oxygen Delivery Method Nasal Cannula Oxygen Flow Rate 2 FIO2% 28 05/07/25 21:31 05/08/25 00:00 05/08/25 04:00 Temperature 97.6 F 97.5 F L 97.5 F L Pulse Rate Pulse Rate [Left Brachial] 94 H 89 87 Respiratory Rate 20 19 19 Blood Pressure Blood Pressure [Left Arm] 130/78 Blood Pressure [Right Arm] 128/69 136/82 O2 Sat by Pulse Oximetry 100 100 100 Oxygen Delivery Method Room Air Room Air Room Air Oxygen Flow Rate FIO2% 05/08/25 07:00 05/08/25 08:00 05/08/25 12:00 Temperature 98.9 F 97.1 F L Pulse Rate Pulse Rate [Left Brachial] 85 88 Respiratory Rate 19 18 Blood Pressure Blood Pressure [Left Arm] 130/67 114/60 Blood Pressure [Right Arm] O2 Sat by Pulse Oximetry 100 98 Oxygen Delivery Method Room Air Room Air Room Air Oxygen Flow Rate FIO2% 05/08/25 16:00 05/08/25 19:00 05/08/25 19:41 Temperature 97.7 F 97.5 F L Pulse Rate Pulse Rate [Left Brachial] 90 85 Respiratory Rate 19 18 Blood Pressure Blood Pressure [Left Arm] 127/72 129/78 Blood Pressure [Right Arm] O2 Sat by Pulse Oximetry 100 99 Oxygen Delivery Method Room Air Room Air Room Air Oxygen Flow Rate FIO2% 05/08/25 21:30 05/09/25 00:00 05/09/25 04:00 Temperature 98.1 F 98.1 F Pulse Rate Pulse Rate [Left Brachial] 85 85 Respiratory Rate 18 19 Blood Pressure Blood Pressure [Left Arm] 138/61 130/68 Blood Pressure [Right Arm] O2 Sat by Pulse Oximetry 99 100 Oxygen Delivery Method Nasal Cannula Room Air Room Air Oxygen Flow Rate 2 FIO2% 28 05/09/25 07:00 05/09/25 08:00 05/09/25 08:42 Temperature 98.1 F Pulse Rate Pulse Rate [Left Brachial] 95 H Respiratory Rate 19 Blood Pressure Blood Pressure [Left Arm] 121/70 Blood Pressure [Right Arm] O2 Sat by Pulse Oximetry 100 Oxygen Delivery Method Room Air Room Air Room Air Oxygen Flow Rate 2 FIO2% 28 Labs: Laboratory Last Values WBC 5.3 X10^3/uL (3.6-10.0) 05/09/25 04:25 RBC 3.95 X10^6/uL (3.5-5.4) 05/09/25 04:25 Hgb 10.9 g/dL (12.0-16.0) L 05/09/25 04:25 Hct 32.5 % (36.0-47.0) L 05/09/25 04:25 MCV 82.4 fL (80.0-100.0) 05/09/25 04:25 MCH 27.7 pg (27.0-34.0) 05/09/25 04:25 MCHC 33.7 g/dL (33.0-35.0) 05/09/25 04:25 RDW 13.8 % (11.6-16.5) 05/09/25 04:25 Plt Count 230 X10^3/uL (150.0-450.0) 05/09/25 04:25 MPV 8.4 fL (7.4-11.0) 05/09/25 04:25 Neut % (Auto) 53.6 % (42.0-75.0) 05/09/25 04:25 Lymph % (Auto) 31.6 % (21.0-51.0) 05/09/25 04:25 Sandoval % (Auto) 12.5 % (0.0-13.0) 05/09/25 04:25 Eos % (Auto) 1.7 % (0.9-2.9) 05/09/25 04:25 Baso % (Auto) 0.6 % (0.2-1.0) 05/09/25 04:25 Neut # (Auto) 2.9 x10^3/uL (2.2-4.8) 05/09/25 04:25 Lymph # (Auto) 1.7 X10^3/uL (1.3-2.9) 05/09/25 04:25 Sandoval # (Auto) 0.7 x10^3/uL (0.3-0.8) 05/09/25 04:25 Eos # (Auto) 0.1 x10^3/uL (0.0-0.2) 05/09/25 04:25 Baso # (Auto) 0.0 X10^3/uL (0.0-0.1) 05/09/25 04:25 Absolute Nucleated RBC 0.0 /100WBC 05/09/25 04:25 PT 16.2 SECONDS (11.8-14.3) 05/07/25 16:18 INR Target Range - 05/07/25 16:18 INR 1.29 (0.8-1.3) 05/07/25 16:18 APTT 30.0 SECONDS (22.9-36.5) 05/07/25 16:18 PTT Comment - 05/07/25 16:18 D-Dimer 0.75 ug/ml (0.0-0.57) H 05/07/25 16:18 D-Dimer Cancelled 05/07/25 16:18 Sodium 137 mmol/L (136-145) 05/09/25 04:25 Corrected Sodium 138 mmol/L (136-145) 05/09/25 04:25 Potassium 3.5 mmol/L (3.5-5.1) 05/09/25 04:25 Chloride 103 mmol/L (98-107) 05/09/25 04:25 Carbon Dioxide 26.1 mmol/L (21-32) 05/09/25 04:25 BUN 11 mg/dL (7-18) 05/09/25 04:25 Creatinine 0.73 mg/dL (0.55-1.02) 05/09/25 04:25 Est GFR (MDRD) Af Amer > 60 (>60) 05/09/25 04:25 Est GFR (MDRD) Non-Af > 60 (>60) 05/09/25 04:25 Glucose 149 mg/dL (65-99) H 05/09/25 04:25 POC Glucose (mg/dL) 149 mg/dL (65-99) H 05/09/25 05:10 Hemoglobin A1c 10.9 % 05/08/25 05:03 Calcium 8.9 mg/dL (8.5-10.1) 05/09/25 04:25 Corrected Calcium 9.7 mg/dL (8.5-10.1) 05/09/25 04:25 Magnesium 1.6 mg/dL (2.0-2.9) L 05/09/25 04:25 Total Bilirubin 0.40 mg/dL (0.2-1.0) 05/09/25 04:25 AST 26 Units/L (15-37) 05/09/25 04:25 ALT 18 Units/L (12-78) 05/09/25 04:25 Alkaline Phosphatase 97 Units/L (46-116) 05/09/25 04:25 Creatine Kinase 99 Units/L (26-192) 05/08/25 07:37 Troponin I High Sens 8.1 ng/L (4.0-60.0) 05/08/25 07:37 B-Natriuretic Peptide < 5.0 pg/mL (0-79) 05/07/25 16:18 Total Protein 7.3 g/dL (6.4-8.2) 05/09/25 04:25 Albumin 3.0 g/dL (3.4-5.0) L 05/09/25 04:25 Globulin 4.3 g/dL (2.5-4.5) 05/09/25 04:25 Albumin/Globulin Ratio 0.7 Ratio (1.1-2.1) L 05/09/25 04:25 Triglycerides 134 mg/dL (0-150) 05/08/25 05:03 Cholesterol 140 mg/dL (0-200) 05/08/25 05:03 LDL Cholesterol, Calc 84 mg/dL (0-100) 05/08/25 05:03 HDL Cholesterol 29 mg/dL (40-60) L 05/08/25 05:03 Cholesterol/HDL Ratio 4.8 (0.0-5.0) 05/08/25 05:03 Acetone, Semi-Quant Negative (NEGATIVE) 05/07/25 16:18 Reason For Visit: CHEST PAIN/DIABETES MELLITUS TYPE 2 WITH Discharge Diagnosis All Active Problems (Updated 05/08/25 @ 09:53 by Marleni Heck MD) Hypomagnesemia (Acute) History of pulmonary embolism (Chronic) HTN (hypertension) (Chronic) Chest pain (Acute) Type 2 diabetes mellitus with hyperglycemia (Chronic) Hyperglycemia (Acute) Superficial abscess of perineum (Acute) Plan of Treatment: Continue with present treatment and follow up plan. Pt is to keep follow up appointment as instructed and take medications as ordered. Discharge Medications Discharge Medications: No Known Drug Allergies Allergy (Verified 05/04/25 13:05) New Prescriptions insulin aspart U-100 100 unit/mL (3 mL) subcutaneous pen (Novolog FlexPen U-100 Insulin aspart) 1 sliding scale dose subcut USEASDIRECTD #15 mL 05/09/25 [Rx] insulin glargine 100 unit/mL (3 mL) subcutaneous pen (Lantus Solostar U-100 Insulin) 22 unit (0.22 mL) subcut BID 30 days #13.2 mL 05/09/25 [Rx] Discharge Disposition Assessment: No distress noted. Discharge Disposition: Home Discharge Condition: stable Discharge Plan Discharge Plan Hospital Course: Ms. Huber is a 50-year-old female with a past medical history of type 2 diabetes, hypertension, hyperlipidemia, history of DVT/PE and anemia presented with chest tightness and hyperglycemia. She was seen in the ER on 05/04/2025 for hyperglycemia and treated with insulin. She states her blood sugars have been elevated since she started taking Lantus using a vial rather than a pen. Her last A1C was 9%. She has a follow-up with her PCP on Thursday. ER workup showed troponin negative, slight elevation of D-dimer. CT chest did not show PE. Her glucose was 434 and she was treated with insulin. She was started on sliding scale and admitted for further management. Labs were monitored daily and electrolytes replaced as needed. She was started on Lantus 20 units twice daily along with sliding scale short acting insulin. Her glucose levels did not improve the next day. She was told to take Lantus 22 units twice a day along with sliding scale. She does have a follow-up with PCP coming up. She was feeling better and stable for discharge. Patient Disposition: 01 HOME, SELF-CARE Condition: Stable Health Concerns: Post Hospitalization: new medications and changes needed to prevent readmission or further decline. Pt educated and given instructions on all concerns. Care Plan Goals: Problem: Chest Pain Goals: Chest pain improving/resolved Instructions: Contact your physician or report to the closest Emergency Department if your chest pain returns or worsens. Take medications as prescribed. Follow up with your primary doctor as instructed. Plan of Treatment: Continue with present treatment and follow up plan. Pt is to keep follow up appointment as instructed and take medications as ordered. Assessment: No distress noted. Prescription drug monitoring program results: PDMP reviewed and no concerns identified Prescriptions: New insulin glargine [Lantus Solostar U-100 Insulin] 100 unit/mL (3 mL) insulin pen 22 unit subcut BID 30 Days Qty: 13.2 0RF Rx Instructions: take 22 units twice a day insulin aspart U-100 [Novolog FlexPen U-100 Insulin] 100 unit/mL (3 mL) insulin pen 1 sliding scale dose subcut USEASDIRECTD Qty: 15 0RF Rx Instructions: max 30 units daily. Take prior to each meal as per sliding scale Continued carvedilol 6.25 mg tablet 6.25 mg PO BID atorvastatin 20 mg tablet 20 mg PO QPM ibuprofen 800 mg tablet 800 mg PO Q8H PRN oxycodone 15 mg tablet 15 mg PO QID PRN (Reason: chronic pain) pantoprazole 40 mg tablet,delayed release (DR/EC) 40 mg PO QAM olmesartan 20 mg tablet 20 mg PO QDAY levocetirizine 5 mg tablet 5 mg PO QPM buspirone 15 mg tablet 15 mg PO BID Eliquis 5 mg tablet 5 mg PO BID Discontinued insulin glargine [Lantus U-100 Insulin] 100 unit/mL solution 30 unit SUBCUT HS Patient Comments: [NO ORIGINAL SIG] Orders to Discharge Patient Discharge Orders: Discharge (Routine); Ordered 05/09/25 Ordered By: Marleni Heck Follow ups/Referrals Follow ups/Referrals: Dr. Weiss [Other] - 05/10/25 9:00 am Referral Note: Keep scheduled appointment for 05/10/25. Instructions Instructions: Hyperglycemic Hyperosmolar State, Hyperglycemia, Type 1 Diabetes Mellitus, Diagnosis, Adult, Nonspecific Chest Pain, Adult, [id number], How and Where to Give Subcutaneous Insulin Injections, Adult, Blood Glucose Monitoring, Adult, Diabetes Mellitus and Nutrition Stand Alone Forms: Find Help Web Site, Post Hospital Follow Up Care Print Language: PUERT[place] R[place]
== END 2025-05-09 12:55 | disposition home or self-care (01) ==
LOC: ER 16:10 → MED/SURG 16:10
PROVIDERS: ADMIT Internal Medicine; ATTEND Internal Medicine
DX: E83.42 Hypomagnesemia; R07.9 Chest pain, unspecified; Z79.899 Other long term (current) drug therapy; Z86.711 Personal history of pulmonary embolism; R06.02 Shortness of breath; R94.31 Abnormal electrocardiogram [ECG] [EKG]; R79.89 Other specified abnormal findings of blood chemistry; E78.5 Hyperlipidemia, unspecified; E87.1 Hypo-osmolality and hyponatremia; E11.65 Type 2 diabetes mellitus with hyperglycemia; D64.9 Anemia, unspecified; I10 Essential (primary) hypertension; Z79.01 Long term (current) use of anticoagulants; Z59.86 Financial insecurity; Z79.4 Long term (current) use of insulin